=== PATIENT | female | born 1955 | race Hispanic/Latino ===

== ENCOUNTER 2016-09-02 11:38 | Emergency (ER) | payer OTHER ==
[~2016-09-02] VITALS: Ht 154.9 cm; Wt 118.8 kg
[2016-09-02 12:19] LABS: HEMATOCRIT 39.2 % (36.0-46.0); MCH 27.8 PG (29.0-34.0); MCHC 31.6 G/DL (30.0-36.0); MCV 87.9 FL (83-99); MEAN PLAT.VOLUME 11.5 uM^3 (9.5-12.4); PLATELET COUNT 167 K/uL (156-360); RBC DIS.WIDTH-CV 14.1 % (11.8-14.6); RBC DIS.WIDTH-SD 45.3 % (39-53); RED BLOOD COUNT 4.46 M/uL (3.80-5.20); WHITE BLOOD COUNT 4.1 K/uL (4.1-10.2)
[2016-09-02 12:28] LABS: CHLORIDE 111 mEq/L (99-109); SODIUM 143 mEq/L (136-147)
[2016-09-02 12:30] LABS: GLUCOSE 101 mg/dL (70-99)
[2016-09-02 12:31] LABS: ANION GAP 7 MEQ/L (2-14)
[2016-09-02 12:38] LABS: UREA NITROGEN (BUN) 15 mg/dL (9-23)
[2016-09-02 12:39] LABS: GFR ESTIMATE (CALCULATED) > 59 mL/min/
[2016-09-02] MEDS ORDERED: PREDNISONE20 MG PO (14:23)
[2016-09-02] MEDS ORDERED: LEVAQUIN750 MG PO (14:23)
[2016-09-02] MEDS ORDERED: VENTOLIN HFA18 GM IH (14:23)
[2016-09-02 15:03] VITALS: BP 125/57
== END 2016-09-02 15:05 | disposition home or self-care (01) ==
LOC: EME 11:38
DX: J45.901 Unspecified asthma with (acute) exacerbation (principal); J20.9 Acute bronchitis, unspecified
CPT/HCPCS: 71020; 80048; 85027; 93005; 94640; 99281; 99284; J7512